=== PATIENT | female | born 1930 | race Caucasian/White ===

== ENCOUNTER 2018-08-22 17:11 | Emergency (ER) | payer MEDICARE ==
[~2018-08-22] VITALS: Ht 147.3 cm; Wt 54.4 kg
--- NOTE | 2018-08-22 18:10 | NUR ---
PT REFUSED THE X-RAY. NOTIFIED.
--- NOTE | 2018-08-22 18:18 | NUR ---
Patient discharged to home in stable conditon. Written and verbal after care instructions given. Patient verbalizes understanding of instructions.PT WITH SON. NO SIGN OF DISTRESS. PT SAYS WILL GO HOME AND IF GETS WORSE WILL COME BACK
== END 2018-08-22 18:20 | disposition home or self-care (01) ==
LOC: ER 17:15
DX: S63.501A Unspecified sprain of right wrist, initial encounter (principal); M54.5 Low back pain; E78.5 Hyperlipidemia, unspecified; Z88.2 Allergy status to sulfonamides; W01.0XXA Fall on same level from slipping, tripping and stumbling without subsequent striking against object, initial encounter; Y93.89 Activity, other specified; Y92.89 Other specified places as the place of occurrence of the external cause; Y99.8 Other external cause status
CPT/HCPCS: A4663

== ENCOUNTER 2018-08-28 10:51 | Emergency (ER) | payer MEDICARE ==
[~2018-08-28] VITALS: Ht 157.5 cm; Wt 63.5 kg
[2018-08-28] MEDS ORDERED: SERTRALINE HCL 100 MG TABLET (11:07)
[2018-08-28] MEDS ORDERED: SIMVASTATIN 20 MG TABLET (11:07)
[2018-08-28] MEDS ORDERED: FENOFIBRATE 160 MG TABLET (11:07)
[2018-08-28] MEDS ORDERED: TRIAMCINOLONE 0.1% CREAM (11:07)
--- NOTE | 2018-08-28 12:50 | NUR ---
Patient is resting comfortably on gurney. Yudy's son is at bedside, pending CT scan@this time, no acute change in condition seen.
--- NOTE | 2018-08-28 14:01 | NUR ---
Patient was able to move from gurney to wheelchair and wheelchair to a private car with one person assist.
--- NOTE | 2018-08-28 14:04 | NUR ---
Patient discharged to home in stable conditon. Written and verbal after care instructions given to patient and adult son. Patient and family verbalized understanding of instructions.
== END 2018-08-28 14:04 | disposition home or self-care (01) ==
LOC: ER 10:51
DX: S32.10XA Unspecified fracture of sacrum, initial encounter for closed fracture (principal); E78.5 Hyperlipidemia, unspecified; Z88.2 Allergy status to sulfonamides; W19.XXXA Unspecified fall, initial encounter; Y93.89 Activity, other specified; Y92.89 Other specified places as the place of occurrence of the external cause; Y99.8 Other external cause status
CPT/HCPCS: 72170; 72192; 72220; 73110; A4663

== ENCOUNTER 2019-11-10 05:33 | Emergency (ER) | payer MEDICARE ==
[~2019-11-10] VITALS: Ht 162.6 cm; Wt 61.4 kg
--- NOTE | 2019-11-10 06:00 | NUR ---
POLST : DNR PT AT RA NAD +2 SUPERFICIAL LAC ON L UPPER OUTER EYEBROW AND L EYELID MD AT BEDSIDE FOR HX AND PHYSICAL
[2019-11-10] MEDS ORDERED: TDAP DIPH,PERTUSS,TET VAC/PF 0.5 ML DISP.SYRIN IM ONE ×2 (06:15→06:31)
[2019-11-10 06:33] LABS: BASOPHILS # (AUTO) 0.1 K/uL (0.0-8.0); BASOPHILS % (AUTO) 0.9 % (0.0-2.0); EOSINOPHILS # (AUTO) 0.2 K/uL (0.0-0.7); EOSINOPHILS % (AUTO) 2.4 % (0.0-7.0); HEMATOCRIT 36.7 % (31.2-41.9); HEMOGLOBIN 12.6 g/dL (10.9-14.3); LYMPHOCYTES # (AUTO) 2.8 K/uL (20.0-40.0); LYMPHOCYTES % (AUTO) 33.1 % (20.5-51.5); MEAN CORPUSCULAR HEMOGLOBIN 33.2 uug (24.7-32.8); MEAN CORPUSCULAR HGB CONC 34 g/dL (32.3-35.6); MEAN CORPUSCULAR VOLUME 96.5 fL (75.5-95.3); MONOCYTES # (AUTO) 0.7 K/uL (2.0-10.0); MONOCYTES % (AUTO) 8.7 % (0.0-11.0); NEUTROPHILS # (AUTO) 4.6 K/uL (1.8-8.9); NEUTROPHILS % (AUTO) 54.9 % (38.5-71.5); PLATELET COUNT (AUTO) 221 K/uL (179-408); WHITE BLOOD COUNT (AUTO) 8.3 K/uL (3.8-11.8)
[2019-11-10 06:38] LABS: CREATININE 1.1 mg/dL (0.6-1.3); POTASSIUM 3.8 mmol/L (3.5-5.1)
--- NOTE | 2019-11-10 06:53 | NUR ---
PT DOWN AT CT VIA KEIRY ACC BY APPLICATION SOFTWARE ENGINEER
--- NOTE | 2019-11-10 07:03 | NUR ---
HAND OFF AND SBAR GIVEN
--- NOTE | 2019-11-10 07:18 | NUR ---
DHRUV MARTIN AT BEDSIDE.
[2019-11-10] MEDS ORDERED: NEOMY/BACITRA/POLYMYXIN B OINT UD PACKET TP ONE ×2 (07:22→07:30)
--- NOTE | 2019-11-10 07:27 | NUR ---
RECEIVED SHIFT REPORT FROM CRYSTAL.
--- NOTE | 2019-11-10 07:34 | NUR ---
SUPERFICIAL LAC ABOVE L EYEBROW CLOSED W/ 4 STER-STRIPS AND TRIPLE ANTIBIOTIC OINTMENT APPLIED.
--- NOTE | 2019-11-10 08:01 | NUR ---
CALLED EMERY, MATTHEW W/ CATHERINE. TRIP #[id number]. ETA 1 HOUR.
--- NOTE | 2019-11-10 09:31 | NUR ---
SPOKE W/ MATTHEW FROM [facility]. UPDATED ETA 20 MIN.
[2019-11-10 10:01] VITALS: BP 140/78
--- NOTE | 2019-11-10 10:07 | NUR ---
Patient discharged to home in stable conditon. Written and verbal after care instructions given. Patient verbalizes understanding of instructions. ALL BELONGINGS W/ PT. D/C REPORT GIVEN TO EMT'S W/ [id number] UN[id number].
== END 2019-11-10 10:07 | disposition home or self-care (01) ==
LOC: ER 05:38
DX: S01.81XA Laceration without foreign body of other part of head, initial encounter (principal); E78.5 Hyperlipidemia, unspecified; F41.9 Anxiety disorder, unspecified; F32.9 Major depressive disorder, single episode, unspecified; Z88.2 Allergy status to sulfonamides; Z79.899 Other long term (current) drug therapy; W06.XXXA Fall from bed, initial encounter; Y93.89 Activity, other specified; Y92.89 Other specified places as the place of occurrence of the external cause; Y99.8 Other external cause status
CPT/HCPCS: 36415; 70030-TC; 70450; 72125; 85025; 90715; 93005; A4663